=== PATIENT | female | born 1995 | race African-American/Black ===

== ENCOUNTER → 2016-11-10 | Outpatient (CLI) | payer BC ==
[~2016-11-10] MED LIST: PRENTAB26 PO
[2016-11-10 16:08] LABS: HEMATOCRIT 35.2 % (37-47)
[2016-11-10 18:23] LABS: GTGD 50 Grams
== END | disposition home or self-care (01) ==
LOC: C.LAB1850 15:01
PROVIDERS: ATTEND Obstetrics & Gynecology
DX: Z34.03 Encounter for supervision of normal first pregnancy, third trimester (principal)

== ENCOUNTER → 2016-11-10 | Outpatient (CLI) | payer BC ==
[2016-11-10 18:41] LABS: URINE APPEARANCE CLEAR (CLEAR); URINE BILIRUBIN NEG (NEG); URINE COLOR YELLOW; URINE EPITHELIAL CELL AUTO 20-30 /lpf (0-5); URINE NITRITE NEG (NEG); URINE PH 7.5 (4.5-7.5); URINE SPECIFIC GRAVITY 1.011 (1.000-1.030); UROBILINOGEN NEG (NEG)
[2016-11-10 18:44] LABS: MANUAL MICROSCOPIC REQUIRED? NO; REVIEW REQ? NO
== END | disposition home or self-care (01) ==
LOC: C.LABSPEC 18:17
PROVIDERS: ATTEND Obstetrics & Gynecology
DX: Z34.03 Encounter for supervision of normal first pregnancy, third trimester (principal)

== ENCOUNTER → 2016-12-29 | Outpatient (CLI) | payer BC ==
[2016-12-29 17:44] LABS: PATIENT HEIGHT 152.4 cm
[2016-12-29 18:16] LABS: URINE TOTAL PROTEIN 15.9 mg/dl (0-11.9)
[2016-12-29 18:36] LABS: CREATININE 0.46 mg/dl (0.6-1.2)
[2016-12-29 18:53] LABS: URINE TOTAL PROTEIN CALC 238.5 mg/24 hr (0-149.1)
== END | disposition home or self-care (01) ==
LOC: C.LAB 17:29
PROVIDERS: ATTEND Obstetrics & Gynecology
DX: O13.3 Gestational [pregnancy-induced] hypertension without significant proteinuria, third trimester (principal)

== ENCOUNTER → 2016-12-31 | Outpatient (CLI) | payer BC | END | disposition home or self-care (01) | LOC: C.LABSPEC 17:41 | PROVIDERS: ATTEND Obstetrics & Gynecology | DX: Z34.03 Encounter for supervision of normal first pregnancy, third trimester (principal) ==

== ENCOUNTER → 2017-01-04 | Outpatient (CLI) | payer BC ==
[2017-01-04 14:47] LABS: BASO % 0.2 %; BASO ABS # 0.02 K/uL (0-0.2); COMPLETE YES; EOS % 0.7 %; IG% 0.5 %; LYMPH % 19.9 %; LYMPH ABS # 2.13 K/uL (1.2-3.4); MEAN CELL VOLUME 87.2 fL (80-100); MEAN CORPUSCULAR HEMOGLOBIN 29.1 pg (25-34); MEAN CORPUSCULAR HGB CONC 33.3 g/dl (32-36); MEAN PLATELET VOLUME 11.1 fL (7.4-10.4); MONO % 6.3 %; NEUT % 72.4 %; PLATELET COUNT 280 K/uL (130-400); RED BLOOD COUNT 4.13 M/uL (4.2-5.4); WHITE BLOOD COUNT 10.69 K/uL (4.8-10.8)
[2017-01-04 15:36] LABS: ALT/SGPT 17 U/L (12-78); AST/SGOT 14 U/L (15-37); CREATININE 0.48 mg/dl (0.60-1.20)
== END | disposition home or self-care (01) ==
LOC: C.LAB1850 13:40
PROVIDERS: ATTEND Obstetrics & Gynecology
DX: O13.3 Gestational [pregnancy-induced] hypertension without significant proteinuria, third trimester (principal)

== ENCOUNTER 2017-01-05 19:11 | Outpatient (CLI) | payer BC ==
[~2017-01-05] VITALS: Ht 162.6 cm; Wt 96.5 kg
[2017-01-05 20:02] VITALS: Ht 162.6 cm; Wt 96.5 kg
== END 2017-01-05 20:50 | disposition home or self-care (01) ==
LOC: C.OPB 19:11 → C.LD 19:11 → C.OPB 20:50
PROVIDERS: ATTEND Obstetrics & Gynecology
DX: O13.3 Gestational [pregnancy-induced] hypertension without significant proteinuria, third trimester (principal); Z3A.37 37 weeks gestation of pregnancy

== ENCOUNTER 2017-01-06 07:48 | Inpatient (IN) | payer BC ==
[~2017-01-06] VITALS: Ht 167.6 cm; Wt 96.5 kg
[2017-01-06] MEDS ORDERED: LACTATED RINGER'S 1000ML 1,000 ML IV PRN ×2 (08:19→08:57)
[2017-01-06] MEDS ORDERED: LACTATED RINGER'S 1000ML 1,000 ML IV SCH ×2 (08:19→08:57)
[2017-01-06] MEDS ORDERED: LACTATED RINGER'S 1000ML 500 ML IV PRN ×2 (08:59→15:49)
[2017-01-06] MEDS ORDERED: OXYTOCIN 30 UNITS/500ML NSS IV PRN (09:00)
[2017-01-06 09:05] LABS: HEMATOCRIT 36.3 % (37-47); MEAN CELL VOLUME 87.7 fL (80-100); MEAN CORPUSCULAR HEMOGLOBIN 28.5 pg (25-34); MEAN CORPUSCULAR HGB CONC 32.5 g/dl (32-36); PLATELET COUNT 270 K/uL (130-400); RED BLOOD COUNT 4.14 M/uL (4.2-5.4); WHITE BLOOD COUNT 8.05 K/uL (4.8-10.8)
[2017-01-06] MEDS ORDERED: PENICILLIN G POTASSIUM IV 6 MU in DEXTROSE 5% 250ML 250 ML IV ONE (09:15)
[2017-01-06 09:36] LABS: ALB/GLOB RATIO 0.6 (0.9-2); ALKALINE PHOSPHATASE 169 U/L (45-117); ALT/SGPT 19 U/L (12-78); AST/SGOT 16 U/L (15-37); BLOOD UREA NITROGEN 5 mg/dl (7-18); CALCIUM 8.4 mg/dl (8.5-10.1); CARBON DIOXIDE 20 mmol/L (21-32); CHLORIDE 109 mmol/L (98-107); GLUCOSE 85 mg/dl (70-99); POTASSIUM 3.6 mmol/L (3.5-5.1); SODIUM 141 mmol/L (136-145)
[2017-01-06 09:45] LABS: AST/SGOT 15 U/L (15-37); CREATININE 0.51 mg/dl (0.60-1.20)
[2017-01-06 10:31] VITALS: Ht 167.6 cm; Wt 96.5 kg
[2017-01-06] MEDS: PENICILLIN G POTASSIUM IV 3 MU in DEXTROSE 5% 100ML 100 ML IV PRN ×3 (13:35→22:19)
[2017-01-06] MEDS ORDERED: EpHEDrine SULFATE INJ 50 MG/ML AMP ONE (15:02)
[2017-01-06] MEDS ORDERED: BUPIVACAINE 0.25% 30 ML VIAL ONE ×2 (15:02→15:43)
[2017-01-06] MEDS ORDERED: FENTANYL CITRATE INJ 50 MCG/1 ML 2 ML VIAL ONE (15:03)
[2017-01-06] MEDS ORDERED: FENTANYL 2MCG/ML ROPIV 1.25MG/ML 100ML BAG EPI ONE (15:03)
[2017-01-06] MEDS ORDERED: NALOXONE HCL INJ 0.4 MG/1 ML VIAL/CARP IV PRN (16:00)
[2017-01-06] MEDS ORDERED: EpHEDrine SULFATE INJ 50 MG/ML AMP IV PRN (16:00)
[2017-01-06] MEDS ORDERED: FENTANYL 2MCG/ML ROPIV 1.25MG/ML 100ML BAG EPI PRN (16:00)
[2017-01-07] MEDS ORDERED: LANOLIN OINT EXT PRN ×2
[2017-01-07] MEDS ORDERED: SUPERCREAM 0.870 % 15GM JAR EXT PRN
[2017-01-07] MEDS ORDERED: OXYTOCIN 30 UNITS/500ML NSS IV PRN
[2017-01-07] MEDS ORDERED: BENZOCAINE 20% AER SPR 82.5 GM CAN EXT PRN
[2017-01-07] MEDS ORDERED: ACETAMINOPHEN/CODEINE 300/30MG TAB PO PRN ×2
[2017-01-07] MEDS ORDERED: ACETAMINOPHEN 325 MG TAB PO PRN
[2017-01-07 02:35] VITALS: BP 147/94; PULSE 79; TEMP 36.6; O2SAT 99
[2017-01-07 04:20] VITALS: BP 129/77; PULSE 70; TEMP 36.7; O2SAT 99
--- NOTE | 2017-01-07 04:35 | Anesthesia Procedure Note ---
Anesthesia Epidural Removal Nt Date & Time Jan 07, 2017 at 04:35 Vital Signs Pain Intensity: 0.0 Vital Signs Past 12 Hours Date Time Temp Pulse Resp B/P Pulse Ox O2 Delivery O2 Flow Rate FiO2 01/07/17 02:35 99 Room Air 01/07/17 02:35 36.6 79 16 147/94 99 Room Air Notes Mental Status: alert / awake / arousable, participated in evaluation Nausea / Vomiting: adequately controlled Pain: adequately controlled Airway Patency, RR, SpO2: stable & adequate BP & HR: stable & adequate Hydration State: stable & adequate Neuraxial Anesthesia: was administered Anesthetic Complications: no major complications apparent, pt satisfied with anesthetic care Epidural: removed without complications, with tip intact
--- NOTE | 2017-01-07 06:54 | Progress Note ---
Subjective Jan 07, 2017. Subjective conversation w/ patient, physical exam Ambulation: ambulating normally Voiding: no voiding problems Passing Gas: Yes Diet Tolerance: Regular Diet Lochia: Small Feeding Type: Breast Feeding Review of Systems Constitutional: No chills, No fever Respiratory: No cough, No shortness of breath Cardiac: No chest pain, No palpitations Abdomen: No nausea, No pain, No vomiting Objective Vital Signs Date Time Temp Pulse Resp B/P Pulse Ox O2 Delivery O2 Flow Rate FiO2 01/07/17 04:20 36.7 70 16 129/77 99 Room Air 01/07/17 02:35 99 Room Air 01/07/17 02:35 36.6 79 16 147/94 99 Room Air Physical Exam General Appearance: WELL-APPEARING, NO APPARENT DISTRESS Respiratory/Chest: chest non-tender, no respiratory distress Cardiovascular: regular rate, rhythm, no murmur Abdomen: non tender Fundus: Firm, Non-Tender, Relation to Umbilicus (at the umbilicus and to the right) Extremities: non-tender, no calf tenderness Laboratory Results Last 24 Hours Test 01/06/17 08:41 01/07/17 04:44 White Blood Count 8.05 K/uL Red Blood Count 4.14 M/uL Hemoglobin 11.8 g/dL Hematocrit 36.3 % Mean Corpuscular Volume 87.7 fL Mean Corpuscular Hemoglobin 28.5 pg Mean Corpuscular Hemoglobin Concent 32.5 g/dl RDW Standard Deviation 45.7 fL RDW Coefficient of Variation 14.2 % Platelet Count 270 K/uL Mean Platelet Volume 11.0 fL Sodium Level 141 mmol/L Potassium Level 3.6 mmol/L Chloride Level 109 mmol/L Carbon Dioxide Level 20 mmol/L Anion Gap 12.0 mmol/L Blood Urea Nitrogen 5 mg/dl Creatinine 0.51 mg/dl Estimated GFR () > 150.0 Estimated GFR (Non- 135.5 BUN/Creatinine Ratio 10.0 Random Glucose 85 mg/dl Calcium Level 8.4 mg/dl Total Bilirubin 0.2 mg/dl Aspartate Amino Transf (AST/SGOT) 15 U/L Alanine Aminotransferase (ALT/SGPT) 19 U/L Alkaline Phosphatase 169 U/L Total Protein 7.0 gm/dl Albumin 2.6 gm/dl Globulin 4.4 gm/dl Albumin/Globulin Ratio 0.6 Assessment and Plan Problem List Medical Problems: (1) Threatened Status: Acute Post- Day#: 1 Continue Routine Care: Resident Physician Supervision Note: I interviewed and examined the patient. Discussed with Dr. Marks and agree with findings and plan as documented in the note. Any exceptions or clarifications are listed here: [None] Documented By: Eva Johnson s/p Day 1 - vital signs reviewed and wnl - HGB 11.8 yesterday - Blood: O+, GBS+, Rubella immune - Encourage ambulation, encourage breast feeding, and monitor lochia - Patient doing well clinically - CONTINUE ROUTINE POST CARE
--- NOTE | 2017-01-07 07:12 | DELIVERY SUMMARY ---
DATE OF OPERATION: 01/06/2017 The patient is a 21-year-old 3 para 0020 black female, EDC of 01/22/2017 who presented for induction of labor because of gestational mild preeclampsia. She received a cervical balloon on the evening of 01/05/2017. She represented in labor and delivery for continuation of the induction of labor. She was begun on Pitocin augmentation. She received group B strep prophylaxis as well. An IUPC was placed during the course of the labor to better manage Pitocin increases. She progressed to full dilation and +3 station. She pushed for 30 minutes over an intact perineum for delivery of a viable male . Mouth and nasopharynx were suctioned on the perineum. The rest of the was delivered without difficulty and the cord was noted to be somewhat short; this was cut and clamped prior to putting the baby on the mother's abdomen for further stimulation and evaluation. There was spontaneous crying which was vigorous and the infant was moving all four limbs. The placenta was expressed intact with a 3-vessel cord. First degree perineal laceration was repaired with 3-0 chromic in the usual fashion. Bilateral first degree labial lacerations were not bleeding and therefore not repaired. Blood loss was 300 cc. Mother and infant are doing well after delivery. I attest to the content of the Intraoperative Record and any orders documented therein. Any exceptio ns are noted below.
[2017-01-07 07:14] LABS: HEMATOCRIT 33.2 % (37-47)
[2017-01-07 07:38] VITALS: BP 128/81; PULSE 88; TEMP 36.6; O2SAT 99
[2017-01-07] MEDS: PRENATAL VITAMIN TAB PO SCH (08:29)
[2017-01-07] MEDS: DOCUSATE SODIUM 100 MG CAP PO SCH ×2 (08:29→19:41)
[2017-01-07] MEDS: IBUPROFEN 600 MG TAB PO PRN ×3 (08:30→22:18)
[2017-01-07 11:41] VITALS: BP 131/77; PULSE 80; TEMP 36.7; O2SAT 98
[2017-01-07 16:00] VITALS: BP 127/81; PULSE 67; TEMP 36.7
[2017-01-07 19:30] VITALS: BP 134/84; PULSE 76; TEMP 36.6
[2017-01-07] MEDS ORDERED: BISACODYL 5 MG TABEC PO SCH (20:00)
--- NOTE | 2017-01-07 20:25 | Discharge Instructions ---
Discharge Instructions Date of Service Jan 07, 2017. Admission Reason for Admission: Induction Discharge Discharge Diagnosis / Problem: Spontaneous Vaginal Delivery Discharge Goals Goal(s): Routine recovery after delivery Medications Continue Dispensed Medications: supercream, dermaplast, tucks, lansinoh Activity Recommendations Activity Limitations: per Instructions/Follow-up section . Instructions / Follow-Up Instructions / Follow-Up ACTIVITY RECOMMENDATIONS: * Gradual return to full activity over the next 2-3 weeks. * No lifting - nothing heavier than baby over the next 2-3 weeks. * Do not engage in vigorous exercise, sexual activity or sports until cleared by your physician. * Do not drive or operate any motorized equipment until cleared by your physician. * You may shower/bathe daily. MEDICATIONS: For discomfort or pain, you may use Acetaminophen (Tylenol), Ibuprofen (Advil), or Naproxen (Aleve) following the package directions. For constipation you may use Colace following the package directions. BREAST CARE: If you are not breast feeding: * Wear a supportive bra 24 hours a day for one to two weeks. * Avoid stimulating your breasts and nipples as much as possible during the first few weeks after delivery. * When taking a shower, have the warm water hit your back, not breasts. * When your breasts feel full, apply ice packs. Usually three to four times a day helps ease the discomfort. * Take a mild pain medication (Tylenol / Motrin) when you are uncomfortable. If breast feeding: * Use breast milk to lubricate nipples. Lansinoh cream may be used for sore nipples. You do not need to remove cream prior to breast feeding. If using a different brand of cream, check the label for directions regarding removal of cream prior to nursing. * Wear a supportive bra. * If having problems with breasts or breast feeding, call a learning consultant or your health care provider. EPISIOTOMY CARE: After delivery, if you have an episiotomy (stitches), the following steps will ease discomfort and aid healing. * For the first 24 hours after delivery, place ice packs next to your episiotomy to help reduce swelling. * After the first 24 hour-period, sitz baths, either portable or in the tub, are suggested. A shower with a shower arm sprayed over the episiotomy may be comforting. * Raina care should be done after each voiding and bowel movement. Squirt warm water from a plastic bottle over the perineum (region of the body between the anus and urinary opening) and pat dry. * Use Dermoplast to ease discomfort. Shake container. Lawrence directly over the episiotomy. Place a Tucks on a clean sanitary pad next to your episiotomy. SPECIAL CARE INSTRUCTIONS: When you are discharged from the hospital, it is important for you to follow the instructions listed below: * During the first week at home, you should be able to care for yourself and your baby. In addition, the usual light household activities are encouraged. * Limit your activities to the way you feel. Do not try to clean the house or move furniture. Be sensible. * If you actively engage in sports and have done so up until the time of your delivery, you may resume these activities as soon as you feel able. This may take up to one month or even longer. Use good judgment. * Continue to take your vitamins for at least six weeks after the of your baby. * Your diet need not be limited unless you were on a special diet before your delivery. Breast-feeding mothers need around 2500 calories per day and at least 64-80 ounces of fluid per day (8 to 10 glasses). * You should eat foods from the four major food groups. Crash diets or fad diets are to be avoided. Eating lean meats, fresh fruits and vegetables, low-fat dairy products, high fiber foods and a regular exercise program, will help you get back to your pre- weight without putting your health at risk. * Constipation is sometimes a problem after delivery. Take a mild laxative as needed. If breast feeding, Milk of Magnesia is acceptable to use. You may use a suppository or Fleets enema if no episiotomy. * A daily shower or tub bath is suggested. Be sure to thoroughly and gently dry the perineum. * A bloody vaginal discharge will usually continue until around four weeks post . A small amount of bleeding may continue for as long as six weeks. Vaginal discharge changes from the bright red bleeding after delivery to pink then brownish and finally yellowish-pink before becoming white and disappearing. * Bleeding may increase with activity. Your first period may come in 4-8 weeks. If you are breast feeding, your period may be delayed even longer. * Buckeye (sex) can begin whenever both you and your partner feel comfortable and do not have any form of genital infection. It is recommended that you wait at least six weeks for internal and external healing to occur. If you have questions, please talk to your health care practitioner. A condom should be used to prevent infection and . * Foreplay, gentle intercourse and lubrication is very important the first several times to prevent pain. A water-based lubricant such as K-Y jelly or Astroglide may be used. * If you have RH negative blood and your baby is RH positive, you will receive RHOGAM by injection prior to discharge. The nurse will give you a card to keep with you that has the date and place that you received RHOGAM after delivery. * During your care, you had a Rubella screen done to check for the presence of rubella antibodies in your blood. If your test was negative, you will receive a Rubella vaccine prior to discharge. This vaccine may cause a fever, soreness at the injection site and flu-like symptoms. If these symptoms persist, notify your health care practitioner. is not advised for one month after a Rubella vaccine. * Verbalizes understanding of car seat law as reviewed with patient nursing. * Car Seat hand-out given and reviewed with patient by nursing. * Shaken baby information reviewed with patient by nursing. Call you doctor if: * Heavy bleeding (saturating several pads an hour) or passing clots the size of your fist. * A fever >101 degrees F (38.3 degrees C) on two occasions four hours apart and /or chills. * Unusual pain in the pelvic or vaginal areas. * "Baby Blues" lasting longer than two weeks. If you have any questions or concerns, call your health care practitioner at . FOLLOW UP VISIT: * Please call the office at to schedule a 6 week examination. It is important you keep this appointment. It is important for you to make arrangements for either yearly or twice yearly check-ups thereafter. Current Hospital Diet Patient's current hospital diet: Regular OB Diet Discharge Diet Recommended Diet: Regular Diet Pending Studies Studies pending at discharge: no Medical Emergencies . Who to Call and When: Medical Emergencies: If at any time you feel your situation is an emergency, please call 911 immediately. . Non-Emergent Contact Non-Emergency issues call your: Primary Care Provider, [employer] . . "Provider Documentation" section prepared by Enrrique Marks. VTE Core Measure Inpt VTE Proph given/why not?: Treatment not indicated
[2017-01-08 00:25] VITALS: BP 120/70; PULSE 67; TEMP 36.4
--- NOTE | 2017-01-08 07:10 | Progress Note ---
Subjective Jan 08, 2017. Subjective conversation w/ patient, physical exam Ambulation: ambulating normally Voiding: no voiding problems Passing Gas: Yes Diet Tolerance: Regular Diet Lochia: Small Feeding Type: Breast Feeding Review of Systems Constitutional: No chills, No fever Respiratory: No cough, No shortness of breath Cardiac: No chest pain, No edema Objective Vital Signs Date Time Temp Pulse Resp B/P Pulse Ox O2 Delivery O2 Flow Rate FiO2 01/08/17 00:25 Room Air 01/08/17 00:25 36.4 67 16 120/70 Room Air 01/07/17 19:30 36.6 76 20 134/84 Room Air 01/07/17 19:30 Room Air 01/07/17 16:30 Room Air 01/07/17 16:00 36.7 67 20 127/81 Room Air 01/07/17 11:41 36.7 80 16 131/77 98 Room Air 01/07/17 08:30 Room Air 01/07/17 07:38 36.6 88 128/81 99 Room Air Physical Exam General Appearance: WELL-APPEARING, NO APPARENT DISTRESS Respiratory/Chest: lungs clear, no respiratory distress Cardiovascular: regular rate, rhythm, no murmur Abdomen: non tender, soft Fundus: Firm, Non-Tender, Relation to Umbilicus (at the umbilicus) Extremities: non-tender, no calf tenderness Assessment and Plan Problem List Medical Problems: (1) Threatened Status: Acute Post- Day#: 2 Continue Routine Care: s/p Day 2 - vital signs reviewed and wnl - HGB 11.0 yesterday - Blood: O+, GBS+, Rubella immune - Encourage ambulation, encourage breast feeding, and monitor lochia - Patient doing well clinically - CONTINUE ROUTINE POST CARE
[2017-01-08] MEDS: PRENATAL VITAMIN TAB PO SCH (07:50)
[2017-01-08] MEDS: DOCUSATE SODIUM 100 MG CAP PO SCH ×2 (07:50→19:40)
[2017-01-08 07:53] VITALS: BP 127/85; PULSE 72; TEMP 36.7
[2017-01-08 15:30] VITALS: BP 136/81; PULSE 67; TEMP 36.8
[2017-01-08 23:45] VITALS: BP 138/82; PULSE 74; TEMP 36.5
[2017-01-09] MEDS: IBUPROFEN 600 MG TAB PO PRN (03:27)
[2017-01-09] MEDS: DOCUSATE SODIUM 100 MG CAP PO SCH (07:49)
[2017-01-09] MEDS: PRENATAL VITAMIN TAB PO SCH (07:49)
[2017-01-09 07:59] VITALS: BP 131/83; PULSE 83; TEMP 36.6
--- NOTE | 2017-01-09 08:57 | Progress Note ---
Subjective Jan 09, 2017. Subjective conversation w/ patient, physical exam Ambulation: ambulating normally Voiding: no voiding problems Passing Gas: Yes Diet Tolerance: Regular Diet Lochia: Moderate Feeding Type: Breast Feeding Pain: controlled Comment: Doing well, no complaints. Review of Systems Constitutional: No problem reported Respiratory: No problem reported Cardiac: No problem reported Breast: No problem reported Abdomen: No problem reported Female : No problem reported Objective Vital Signs Date Time Temp Pulse Resp B/P Pulse Ox O2 Delivery O2 Flow Rate FiO2 01/09/17 07:59 36.6 83 20 131/83 Room Air 01/09/17 07:45 Room Air 01/08/17 23:45 Room Air 01/08/17 23:45 36.5 74 18 138/82 Room Air 01/08/17 15:30 Room Air 01/08/17 15:30 36.8 67 18 136/81 Room Air Physical Exam General Appearance: WELL-APPEARING, NO APPARENT DISTRESS Respiratory/Chest: no respiratory distress Cardiovascular: regular rate, rhythm Abdomen: non tender, soft Fundus: Firm Extremities: normal inspection Assessment and Plan Problem List Post- Day#: 2 Continue Routine Care: PPD#2 doing well. Ready for discharge to home. Discharge instructions reviewed, questions answered . Followup in office in 6 weeks.
[2017-01-09 16:13] VITALS: BP_DIAS 83; PULSE 83; TEMP 36.6
== END 2017-01-09 16:00 | disposition home or self-care (01) | DRG 775 ==
LOC: C.LD 07:48 → C.OBG 01-07 02:26
PROVIDERS: ADMIT Obstetrics & Gynecology; ATTEND Obstetrics & Gynecology
PROC: 10E0XZZ Delivery of Products of Conception, External Approach (ICD-10-PCS; principal; 2017-01-06)
PROC: 0HQ9XZZ Repair Perineum Skin, External Approach (ICD-10-PCS; principal; 2017-01-06)
DX: O14.04 Mild to moderate pre-eclampsia, complicating childbirth (principal); O69.3XX0 Labor and delivery complicated by short cord, not applicable or unspecified; Z3A.37 37 weeks gestation of pregnancy; Z37.0 Single live birth; O70.0 First degree perineal laceration during delivery

== ENCOUNTER 2024-01-03 06:42 | Inpatient (IN) ==
[2024-01-03] MEDS ORDERED: LIDOCAINE 1% LOCAL 20 ML VIAL INFIL PRN (07:50)
[2024-01-03] MEDS ORDERED: OXYTOCIN 30 UNITS/NSS 30 UNITS/500 ML BAG IV PRN ×2 (07:50→22:13)
[2024-01-03] MEDS: PENICILLIN GK 6 MU in DEXTROSE 5% 250 ML IV STA (08:28)
[2024-01-03] MEDS: LACTATED RINGER'S 1,000 ML IV PRN (08:28)
[2024-01-03 08:35] LABS: Hematocrit (blood only) 33.9 % (37.0-47.0); Hemoglobin 10.4 g/dl (12.0-16.0); Mean Corpuscular Hemoglobin 24.4 pg (25.0-34.0); Mean Corpuscular Hgb Conc 30.7 g/dL (32.0-36.0); Mean Corpuscular Volume 79.4 fL (80.0-100.0); Mean Platelet Volume 11.4 fL (9.4-12.4); Platelet Count 304 K/uL (130-400); RDW Coefficient of Variation 17.1 % (11.5-14.5); RDW Standard Deviation 47.1 fL (36.4-46.3); Red Blood Count 4.27 M/uL (4.20-5.40); White Blood Count 8.71 K/ul (4.8-10.8)
--- NOTE | 2024-01-03 09:07 | History & Physical Report ---
Date of Service January 03, 2024 Assessment & Plan (1) Normal labor and delivery: Plan Patient is stable, without loss of fluid or blood, contractions 7 min apart or further, with continued, observable movement. A CBC, blood bank hold tube, and oxytocin (2 mU/min starting dose, increase 2mU/min every 30 min until contractions every 2-3 min) has been ordered. Admission and Anticipated Discharge Date Admission Date: January 03, 2024 History of Present Illness Chief Complaint: normal labor Primary Care Provider: NO PCP Patient is , with a PMHx of anxiety, two elective abortions, one spontaneous , depression, Hx of mild pre-eclampsia in first /gestational hypertension w/o significant proteinuria in 3rd trimester, who had planned to come in this morning for an induction of labor but had started having contractions earlier this morning at 3 am, 7 minutes apart, without loss of fluid or blood. movement still present. Patient here with Alex, awaiting of son. Patient not experiencing pain outside of discomfort from contractions. Patient had been experiencing some swelling in her feet and hands, with tingling in hands, but less today. , 40 weeks, 1day confirmed via ultrasound. Here for vaginal delivery. Complications with this are none. Has been attending OB appointments regularly. Currently taking aspirin, 81 mg, daily, AM and pre-wilver vitamins. Contractions: yes, 7 min apart Fluid or Blood loss: none Movement: active Labs - Blood type, O+ - Antibody screen, negative - Hgb, 10.4 - Hct, 33.9 - Wbc, 8.71 - Plt, 304 - Rubella, immune - VDRL/RPR, no - Gonorrhea, no - Chlamydia, no - HIV, no - HbSAg, no - GBS+ - Glucose tolerance x 2 Allergies Allergy/AdvReac Type Severity Reaction Status Date / Time shrimp Allergy Severe ANAPHYLAXIS Verified 01/02/24 12:50 No Known Drug Allergies Allergy Unknown Uncoded 01/03/24 07:23 Home Medications Medication Instructions Recorded Confirmed Type prenat.vits,christine,[id number] 1 tab PO DAILY 07/30/19 01/03/24 History aspirin 81 mg chewable tablet 81 mg PO DAILY 11/30/23 01/03/24 History Past Med/Surg History Medical History (Updated 01/03/24 @ 10:04 by Samir Vera MD) Anxiety 1-14 Spontaneous 1-16 depression with last Mild pre-eclampsia Gestational hypertension w/o significant proteinuria in 3rd trimester Surgical History H/O dilation and curettage 1-14 Family History Father Diabetes mellitus, type 2 Dyslipidemia Grandmother (Maternal) Dyslipidemia Hypertrophic cardiomyopathy Aunt Breast cancer Brain cancer Denies family history of Ovarian cancer Colorectal cancer Social History (Updated 05/24/23 @ 10:59 by Lupe Olivares, ALVIN) Smoking Status: Never smoker Second Hand Exposure: No; Do You Dip or Chew Tobacco: No; Hx Alcohol Use: No Hx Substance Use: No Preferred Language: Yi Communication Ability: Effective Rn Corrections Required: No Beliefs That Will Affect Care: None marital status: marital status details: Alex Almanza Jr (30) [phone] Current Living Situation: Family Current Living Situation Comment: lives with and 2 kids current occupational status: employed current occupation: law office Other Information That Helps Us Care for You: No Feels Safe at Home: Yes Safety Concerns: Feels Safe At This Time Assistive Devices: None Review of Systems Constitutional: no fever, no chills, no body aches and no weakness Eyes: no diplopia, not seeing flashes and no worsening vision Ear, Nose, Mouth, Throat: + nasal congestion; no ear pain, no post nasal drip and no sore throat Respiratory: no cough, no chest congestion and no dyspnea Cardiovascular: no chest pain and no palpitations Gastrointestinal: no abdominal pain, no nausea, no vomiting and no diarrhea/loose stools Genitourinary: + urinary frequency; no dysuria Neurologic: + tingling (r. hand tingling); no numbne ss, no dizziness and no headache(s) Physical Exam Constitutional: WD/WN, vitals as above Respiratory: normal respiratory effort, lungs clear to auscultation Cardiovascular: RRR, no murmur, no edema Extremities: no calf tenderness Gastrointestinal (Abdomen): normal bowel sounds, soft, nontender, no hepatosplenomegaly Psychiatric: A+Ox3, euthymic affect Results & Data Results & Data Vital Signs (Past 12 Hours) Vital Signs Temp Pulse Resp BP 01/03/24 06:53 36.7 C 92 H 20 133/78 01/03/24 06:51 36.7 C 20 Supervising Physician Co-Signing Physician Notes Resident Physician Supervision Note: I interviewed and examined the patient. Discussed with Dr. Vera and agree with findings and plan as documented in the note. Any exceptions or clarifications are listed here: 28 yo at 40 1/7 wga presenting with ctx. PNI: GBS+. SVE 3-4/50/-2, post, med. EFW 7-8. Pcn started, augment PRN. Offered arom w/ next check, epidural prn Documented By: Ruby Carrasco MD
[2024-01-03] MEDS: PENICILLIN GK 3 MU in DEXTROSE 5% 100 ML IV PRN (12:18)
[2024-01-03] MEDS ORDERED: ONDANSETRON INJ 2 MG/ML 2 ML VIAL IV PRN (14:09)
[2024-01-03] MEDS ORDERED: NALOXONE HCL 1 MG in SODIUM CHLORIDE 0.9% 1,000 ML IV PRN (14:09)
[2024-01-03] MEDS ORDERED: BUPIVACAINE 0.25% PF 30 ML VIAL EPI PRN (14:09)
[2024-01-03] MEDS ORDERED: fentaNYL citrate PF 100 MCG/2 ML VIAL EPI PRN (14:09)
[2024-01-03] MEDS ORDERED: diphenhydrAMINE 50 MG/ML VIAL IV PRN (14:09)
[2024-01-03] MEDS ORDERED: NALBUPHINE HCL 5 MG in SYRINGE 0 ML IV PRN (14:09)
[2024-01-03] MEDS ORDERED: ROPIVACAINE 0.5% PF 5 MG/ML 20 ML VIAL EPI PRN (14:09)
[2024-01-03] MEDS ORDERED: LIDOCAINE 2% MPF LOCAL 5 ML VIAL EPI PRN (14:09)
[2024-01-03] MEDS ORDERED: ePHEDrine sulfate 50 MG/ML AMP IV PRN (14:09)
[2024-01-03] MEDS ORDERED: fentANYL 2 MCG/ML BUPIVacaine 0.125%-NSS 100ML BAG EPI PRN (14:09)
[2024-01-03] MEDS ORDERED: SODIUM CHLORIDE 0.9% PF INJ 10 ML VIAL EPI PRN (14:09)
[2024-01-03] MEDS ORDERED: NALOXONE HCL 0.4 MG/1 ML VIAL/CARP IV PRN (14:09)
--- NOTE | 2024-01-03 14:09 | Anesthesiology Consultation ---
Date of Service January 03, 2024 Assessment & Plan ASA ASA2 Proposed Anesthesia Anesthesia Type: Labor Epidural Risk / Benefits Reviewed With: PT / POA / Parent / Guardian, Accepts Plan and Informed Consent Obtained History Height/Weight Height: 5 ft 4 in Weight: 96.162 kg Allergies Allergy/AdvReac Type Severity Reaction Status Date / Time shrimp Allergy Severe ANAPHYLAXIS Verified 01/02/24 12:50 No Known Drug Allergies Allergy Unknown Uncoded 01/03/24 07:23 Medications Home Medications Medication Instructions Recorded Confirmed Last Taken prenat.vits,christine,[id number] 1 tab PO DAILY 07/30/19 01/03/24 Unknown aspirin 81 mg chewable tablet 81 mg PO DAILY 11/30/23 01/03/24 Unknown Active Medications Generic Name Dose Route Start Last Admin Trade Name Freq PRN Reason Stop Dose Admin Lactated Ringer's 1,000 mls @ 125 mls/hr 01/03/24 07:50 01/03/24 13:50 Lr IV 01/05/24 07:49 999 mls/hr .Q8H PRN Infusion L&D Protocol Protocol Penicillin G Potassium 3 mu/ 106 mls @ 100 mls/hr 01/03/24 10:50 01/03/24 13:30 Dextrose IV 01/13/24 10:49 0 mls/hr Q4H PRN Titration GBS(+) Until Delivery Past Medical History Medical History Anxiety 1-14 Spontaneous 1-16 depression with last Mild pre-eclampsia Gestational hypertension w/o significant proteinuria in 3rd trimester Exercise / Class Metabolic Activity II 4-5 Yardwork/Stairs/Walk up hill Past Family History Family History Father Diabetes mellitus, type 2 Dyslipidemia Grandmother (Maternal) Dyslipidemia Hypertrophic cardiomyopathy Aunt Breast cancer Brain cancer Denies family history of Ovarian cancer Colorectal cancer Past Surgical History Surgical History H/O dilation and curettage 1-14 Past Anesthesia History No Hx of Anesthesia Complications and No Family Hx of Anesthesia Complications History of PONV No Hx of PONV and No Hx of Motion Sickness Social History Smoking Status: Never smoker tobacco type: cigarettes Do You Dip or Chew Tobacco: No Hx Alcohol Use: No Hx Substance Use: No substance use type: does not use Review of Systems denies fever/cough/ colds/ chest pain/ SOB/ EVAN denies EVAN Physical Exam Vital Signs Last Vital Signs Temp 36.7 C 01/03/24 12:17 Pulse 96 H 01/03/24 15:11 Resp 18 01/03/24 15:00 BP 121/62 01/03/24 15:11 Pulse Ox 100 01/03/24 15:10 ENMT Mouth: no TMJ abnormality and no dentition abnormality Thyromental Distance: > or= 3.5 Finger Breadths Mallampati Class: II Neck neck extension not limited Respiratory normal respiratory effort; no respiratory distress Auscultation: lungs clear to auscultation bilaterally Cardiovascular Rate/Rhythm: regular rate and regular rhythm Neurologic moves all extremities Psychiatric Orientation: alert and oriented x 3 Testing Laboratory Results 01/03/24 08:11 Blood Type O Positive 01/03/24 08:11 Antibody Screen NEGATIVE 01/03/24 08:11
[2024-01-03] MEDS: fentANYL 2 MCG/ML BUPIVacaine 0.125%-NSS 100ML BAG ONE (14:40)
[2024-01-03] MEDS: fentaNYL citrate PF 100 MCG/2 ML VIAL ONE (14:41)
[2024-01-03] MEDS: LIDOCAINE 2%/EPINEPHRINE 1:200,000 20 ML PF ONE (14:42)
[2024-01-03] MEDS: BUPIVACAINE 0.25% PF 30 ML VIAL ONE (14:42)
[2024-01-03] MEDS: BUPIVACAINE 0.25% PF 30 ML VIAL EPI STA (15:21)
[2024-01-03] MEDS: fentaNYL citrate PF 100 MCG/2 ML VIAL EPI STA (15:22)
[2024-01-03] MEDS: LIDOCAINE 2%/EPINEPHRINE 1:200,000 20 ML PF EPI STA (15:22)
[2024-01-03] MEDS: SODIUM CHLORIDE 0.9% PF INJ 10 ML VIAL EPI STA (15:22)
--- NOTE | 2024-01-03 15:23 | Labor Progress Brief Note ---
Date of Service January 03, 2024 Subjective comfortable w/ epidural Assessment & Plan (1) Group B streptococcal infection during : Plan: 28 yo at 40 1/7 wga admitted for labor/IOL VSS Fetus cat Labor - now s/p arom for large amount of fluid, will start pit if ctx not increasing shortly GBS+, pcn ordered epidural in place Admission and Anticipated Discharge Date Admission Date: January 03, 2024 Physical Exam Genitourinary: Manual OB Exam: + cervical dilation (4-5), + cervical effacement 50%, + station -2 and + amniotic fluid (arom clear) OB Exam Monitor Tracing: + external FHT monitor used, + external uterine monitor used (q5-8) and + category I (135-140/mod/+accel/-decel) Results & Data Vital Signs (Past 12 Hours) Vital Signs Temp Pulse Resp BP Pulse Ox 01/03/24 15:15 98 H 100 01/03/24 15:11 96 H 121/62 01/03/24 15:10 96 H 100 01/03/24 15:05 83 99 01/03/24 15:04 76 96/54 L 01/03/24 15:00 18 01/03/24 15:00 18 01/03/24 15:00 100 01/03/24 15:00 100 H 01/03/24 15:00 97 H 117/59 L 01/03/24 14:55 95 H 100 01/03/24 14:54 90 103/50 L 01/03/24 14:50 98 H 134/71 100 01/03/24 14:45 102 H 100 01/03/24 14:42 101 H 134/71 01/03/24 14:40 99 H 130/61 100 01/03/24 14:39 110 H 141/70 H 01/03/24 14:37 96 H 140/80 01/03/24 14:35 96 H 100 01/03/24 14:33 101 H 136/85 01/03/24 14:30 100 01/03/24 14:30 96 H 01/03/24 14:30 94 H 137/90 01/03/24 14:25 98 H 100 01/03/24 14:20 105 H 100 01/03/24 12:17 98.1 F 88 18 130/75 01/03/24 06:53 98.1 F 92 H 20 133/78 01/03/24 06:51 98.1 F 20 Coding Level of Care Code None Diagnoses Group B streptococcal infection during O98.819; B95.1
[2024-01-03] MEDS: OXYTOCIN 30 UNITS/NSS 30 UNITS/500 ML BAG IV PRN (16:29)
[2024-01-03] MEDS: SODIUM CHLORIDE 0.9% PF INJ 10 ML VIAL ONE (19:04)
[2024-01-03] MEDS: ePHEDrine sulfate 50 MG/ML AMP ONE (19:04)
--- NOTE | 2024-01-03 20:25 | Labor Progress Brief Note ---
Date of Service January 03, 2024 Subjective comfortable w/ epidural Assessment & Plan (1) Group B streptococcal infection during : Plan: 28 yo at 40 1/7 wga admitted for labor/IOL VSS Fetus cat Labor - pit at 6, progress noted. Continue induction GBS+, pcn ordered epidural in place Admission and Anticipated Discharge Date Admission Date: January 03, 2024 Physical Exam Genitourinary: Manual OB Exam: + cervical dilation (7-8), + cervical effacement 70% and + station -1 and 0 OB Exam Monitor Tracing: + external FHT monitor used, + external uterine monitor used (q5-8) and + category II (130/mod/+accel/intermit early and variables) Results & Data Vital Signs (Past 12 Hours) Vital Signs Temp Pulse Resp BP Pulse Ox 01/03/24 20:20 78 100 01/03/24 20:16 91 H 88 L 01/03/24 20:15 88 96 01/03/24 20:11 82 133/73 01/03/24 20:10 81 100 01/03/24 20:05 86 100 01/03/24 20:00 86 100 01/03/24 19:57 81 128/74 01/03/24 19:55 85 100 01/03/24 19:50 84 100 01/03/24 19:45 81 100 01/03/24 19:41 90 134/75 01/03/24 19:40 85 100 01/03/24 19:35 81 100 01/03/24 19:30 83 100 01/03/24 19:28 84 92 01/03/24 19:26 84 144/77 H 01/03/24 19:25 98 H 98 01/03/24 19:20 74 100 01/03/24 19:15 83 100 01/03/24 19:12 86 131/67 01/03/24 19:10 87 99 01/03/24 19:05 72 100 01/03/24 19:00 98.1 F 85 18 100 01/03/24 18:58 81 135/77 01/03/24 18:55 80 100 01/03/24 18:51 80 91 01/03/24 18:50 85 100 01/03/24 18:45 82 100 01/03/24 18:42 82 136/84 03/05/24 18:40 77 100 03/05/24 18:35 85 100 03/05/24 18:30 86 100 03/05/24 18:27 82 133/75 03/05/24 18:25 81 100 03/05/24 18:20 89 100 03/05/24 18:15 80 100 /05/24 18:13 87 93 03/05/24 18:12 77 133/79 03/05/24 18:10 78 100 03/05/24 18:05 87 100 /0524 18:02 81 93 03/05/24 18:00 84 100 /05/24 17:58 83 18 155/87 H 0524 17:55 92 H 100 /0524 17:50 76 100 /0524 17:45 87 100 /05/24 17:41 85 135/76 /05/24 17:40 87 100 /05/24 17:35 100 /0524 17:35 85 03/05/24 17:35 91 H 92 /0524 17:30 81 100 03/05/24 17:27 90 150/72 H /05/24 17:25 86 100 03/05/24 17:20 81 100 /05/24 17:15 79 100 03/05/24 17:13 80 134/75 03/05/24 17:10 80 100 /0524 17:05 80 100 /05/24 17:00 98.1 F 78 16 100 03/05/24 16:57 92 H 151/71 H /05/24 16:55 77 100 /05/24 16:50 87 100 03/05/24 16:45 83 100 03/05/24 16:43 83 120/66 03/05/24 16:40 86 100 03/05/24 16:38 95 H 84 L 03/05/24 16:35 95 H 100 03/05/24 16:30 81 100 03/05/24 16:26 85 127/80 03/05/24 16:25 100 H 100 /05/24 16:20 90 100 03/05/24 16:15 98 H 100 03/05/24 16:12 88 121/78 03/05/24 16:10 95 H 99 03/05/24 16:05 98 H 100 03/05/24 16:00 85 18 100 01/03/24 15:56 93 H 130/68 01/03/24 15:55 90 100 01/03/24 15:50 87 100 01/03/24 15:45 91 H 100 01/03/24 15:41 89 127/72 01/03/24 15:40 88 100 01/03/24 15:35 86 100 01/03/24 15:30 92 H 100 01/03/24 15:27 93 H 125/73 01/03/24 15:25 85 123/65 100 01/03/24 15:20 101 H 100 01/03/24 15:15 98 H 100 01/03/24 15:12 18 01/03/24 15:12 98.1 F 18 01/03/24 15:11 96 H 121/62 01/03/24 15:10 96 H 100 01/03/24 15:05 83 99 01/03/24 15:04 76 96/54 L 01/03/24 15:00 18 01/03/24 15:00 18 01/03/24 15:00 100 01/03/24 15:00 100 H 01/03/24 15:00 97 H 117/59 L 01/03/24 14:55 95 H 100 01/03/24 14:54 90 103/50 L 01/03/24 14:50 98 H 134/71 100 01/03/24 14:45 102 H 100 01/03/24 14:42 101 H 134/71 01/03/24 14:40 99 H 130/61 100 01/03/24 14:39 110 H 141/70 H 01/03/24 14:37 96 H 140/80 01/03/24 14:35 96 H 100 01/03/24 14:33 101 H 136/85 01/03/24 14:30 100 01/03/24 14:30 96 H 01/03/24 14:30 94 H 137/90 01/03/24 14:25 98 H 100 01/03/24 14:20 105 H 100 01/03/24 12:17 98.1 F 88 18 130/75 Coding Level of Care Code None Diagnoses Group B streptococcal infection during O98.819; B95.1
--- NOTE | 2024-01-03 22:08 | Delivery Summary ---
Vaginal Delivery Summary Date of Service January 03, 2024 Vaginal Delivery Summary [facility] PREOPERATIVE DIAGNOSIS: 1. Single intrauterine at 40 1/7 wga 2. Late term IOL 3. GBS+ POSTOPERATIVE DIAGNOSIS: 1. Single intrauterine at 40 1/7 wga 2. Late term IOL 3. GBS+ 4. Delivered PROCEDURE: 1. Normal spontaneous vaginal delivery. SURGEON: Ruby Carrasco MD ANESTHESIA: Epidural. ESTIMATED BLOOD LOSS: 300 mL FLUIDS: Continuous LR. URINE OUTPUT: None. COMPLICATIONS: None. CONDITION: Stable. INDICATIONS: 28 yo at 40 1/7 wga presented early this morning in early labor before planned induction. She was admitted and penicillin started. She progressed to 4cm and received an epidural for pain control. She minimally progressed after and pitocin was started. She then continued to progress to complete and desires to push. FINDINGS: A viable male infant, weight pending with Apgars of 8 and 9 at 1 and 5 minutes respectively. SPECIMEN: Cord blood OPERATIVE REPORT: The patient progressed to 10 cm, 100% effaced and +2 station, pushed over intact perineum with anesthesia to deliver a viable male infant, weight and Apgars as above. Head of delivered in FLOYD position. Loose nuchal cord was present but delivered through as body and shoulders were delivered without difficulty. was delivered to maternal abdomen and nursing staff. Delayed cord clamping was performed for 60 seconds. Cord was clamped and cut. Cord blood was obtained. Placenta delivered spontaneously intact with 3-vessel cord. IV oxytocin and fundal massage were given for excellent hemostasis. Vagina, cervix, perineum, and placenta were inspected. No lacerations were noted. Sponge and needle counts correct x2. No sponges were left behind. Mother and stable in immediate period. [facility] [place] Vaginal Delivery Codes: 43818 global code for the antepartum, delivery, and post- Delivery Type Details: [facility]
[2024-01-03] MEDS ORDERED: bisacodyL 10 MG SUPP PR PRN (22:13)
[2024-01-03] MEDS ORDERED: HYDROCORTISONE ACETATE 25 MG SUPP PR PRN (22:13)
[2024-01-03] MEDS: DIPHTHER/TETAN/PERTUS Vaccine (Tdap, Adol/Adult) 0.5mL IM ONE (22:30)
[2024-01-03] MEDS: IBUPROFEN 600 MG TAB PO PRN (23:06)
[2024-01-03] MEDS: BENZOCAINE 20% SPRY 85 APPLN/85 GM CAN EXT PRN (23:07)
--- NOTE | 2024-01-04 05:44 | Obstetrical Progress Note ---
Date of Service <Samir Vera MD - Last Filed: 01/04/24 07:50> January 04, 2024 Assessment & Plan <Samir Vera MD - Last Filed: 01/04/24 07:50> (1) Normal labor and delivery: Plan 28 yo , status post , day 1 from 01/03/24 - Pt doing well clinically. Feels well today. Eating well, voiding well, ambulating well. Pain well controlled with PRN pain meds. - Routine care -- OOB, ambulation, diet progression as tolerated Vital Signs reviewed and WNL. (Tmax at 36.9) Hemoglobin Reviewed. 10.4 (01/03/24). No Sx concerning for anemia. Blood Type: O+, GBS+, Rubella Immune. Encourage ambulation, monitor and control pain with Motrin PRN, resume regular diet, monitor lochia. Breast feeding encouraged. After discharge will have 6 week follow-up with Dr. Carrasco. <Ruby Carrasco MD - Last Filed: 01/04/24 08:14> (1) Normal labor and delivery: Subjective <Samir Vera MD - Last Filed: 01/04/24 07:50> Ambulation: ambulating normally Voiding: no voiding problems Passing Gas:: Yes Diet Tolerance:: regular diet Lochia:: Moderate Feeding Type:: bottle feeding (and pump breast milk) Current Pain Level(1-10): 6 (in pelvic area) Constitutional: no fever, no chills, no body aches or no weakness Eyes: no diplopia, no seeing flashes or no worsening vision Ear, Nose, Mouth, Throat: + nasal congestion; no ear pain, no post nasal drip or no sore throat Respiratory: no cough, no chest congestion or no dyspnea Cardiovascular: no chest pain or no palpitations Gastrointestinal: no abdominal pain, no nausea, no vomiting or no diarrhea/loose stools Genitourinary (female): + urinary frequency; no dysuria Neurologic: + tingling (r. hand tingling); no numbness, no dizziness or no headache(s) Physical Exam <Samir Vera MD - Last Filed: 01/04/24 07:50> Constitutional WD/WN, vitals as above Respiratory normal respiratory effort, lungs clear to auscultation Cardiovascular RRR, no murmur, no edema Extremities: no calf tenderness Gastrointestinal (Abdomen) normal bowel sounds, soft, nontender, no hepatosplenomegaly Psychiatric A+Ox3, euthymic affect Results & Data <Samir Vera MD - Last Filed: 01/04/24 07:50> Vital Signs (Past 12 Hours) Vital Signs Temp Pulse Pulse Resp BP BP Pulse Ox 01/04/24 01:00 36.7 C 87 16 126/80 98 01/04/24 00:11 87 135/64 01/03/24 23:56 96 H 130/61 01/03/24 23:41 99 H 146/73 H 01/03/24 23:27 104 H 147/65 H 01/03/24 23:11 93 H 139/64 01/03/24 22:56 114 H 149/83 H 01/03/24 22:42 105 H 152/72 H 01/03/24 22:27 104 H 152/79 H 01/03/24 22:24 105 H 139/94 01/03/24 21:57 107 H 98 01/03/24 21:56 107 H 139/79 01/03/24 21:52 160 H 96 01/03/24 21:47 137 H 98 01/03/24 21:40 102 H 84 L 01/03/24 21:36 110 H 91 01/03/24 21:35 108 H 98 01/03/24 21:30 99 H 100 01/03/24 21:26 96 H 146/82 H 01/03/24 21:25 96 H 99 01/03/24 21:20 36.9 C 94 H 18 100 01/03/24 21:15 96 H 100 01/03/24 21:13 90 139/83 01/03/24 21:10 92 H 100 01/03/24 21:05 94 H 100 01/03/24 21:00 87 100 01/03/24 20:59 105 H 91 01/03/24 20:58 90 138/87 01/03/24 20:55 88 100 01/03/24 20:50 98 H 100 01/03/24 20:45 85 100 01/03/24 20:43 86 134/80 03/05/24 20:40 84 100 03/05/24 20:35 78 100 03/05/24 20:30 89 100 03/0524 20:26 80 139/85 03/0524 20:25 82 100 03/05/24 20:20 78 100 0524 20:16 91 H 88 L 01/03/24 20:15 88 96 24 20:11 82 133/73 03/0524 20:10 81 100 05 20:05 86 100 0305 20:00 86 100 05 19:57 81 128/74 03/0524 19:55 85 100 05 19:50 84 100 /05 19:45 81 100 05 19:41 90 134/75 0524 19:40 85 100 01/03/24 19:35 81 100 03/0524 19:30 83 100 05 19:28 84 92 01/03/24 19:26 84 144/77 H 01/03/24 19:25 98 H 98 01/03/24 19:20 74 100 03/05 19:15 83 100 03/0524 19:12 86 131/67 0305 19:10 87 99 05 19:05 72 100 01/03/24 19:00 36.7 C 85 18 100 01/03/24 18:58 81 135/77 03/05/24 18:55 80 100 0524 18:51 80 91 03/0524 18:50 85 100 030524 18:45 82 100 03/0524 18:42 82 136/84 0524 18:40 77 100 03/0524 18:35 85 100 03/05/24 18:30 86 100 03/0524 18:27 82 133/75 03/05/24 18:25 81 100 03/0524 18:20 89 100 030524 18:15 80 100 03/0524 18:13 87 93 03/0524 18:12 77 133/79 03/0524 18:10 78 100 03/0524 18:05 87 100 030524 18:02 81 93 03/0524 18:00 84 100 01/03/24 17:58 83 18 155/87 H 01/03/24 17:55 92 H 100 01/03/24 17:50 76 100 01/03/24 17:45 87 100 O2 Del Method 01/04/24 01:00 Room Air 01/04/24 00:11 01/03/24 23:56 01/03/24 23:41 01/03/24 23:27 01/03/24 23:11 01/03/24 22:56 01/03/24 22:42 01/03/24 22:27 01/03/24 22:24 01/03/24 21:57 01/03/24 21:56 01/03/24 21:52 01/03/24 21:47 01/03/24 21:40 01/03/24 21:36 01/03/24 21:35 01/03/24 21:30 01/03/24 21:26 01/03/24 21:25 01/03/24 21:20 01/03/24 21:15 01/03/24 21:13 01/03/24 21:10 01/03/24 21:05 01/03/24 21:00 01/03/24 20:59 01/03/24 20:58 01/03/24 20:55 01/03/24 20:50 01/03/24 20:45 01/03/24 20:43 01/03/24 20:40 01/03/24 20:35 01/03/24 20:30 01/03/24 20:26 01/03/24 20:25 01/03/24 20:20 01/03/24 20:16 01/03/24 20:15 01/03/24 20:11 01/03/24 20:10 01/03/24 20:05 01/03/24 20:00 01/03/24 19:57 01/03/24 19:55 01/03/24 19:50 01/03/24 19:45 01/03/24 19:41 01/03/24 19:40 01/03/24 19:35 01/03/24 19:30 01/03/24 19:28 01/03/24 19:26 01/03/24 19:25 01/03/24 19:20 01/03/24 19:15 01/03/24 19:12 01/03/24 19:10 01/03/24 19:05 01/03/24 19:00 01/03/24 18:58 01/03/24 18:55 01/03/24 18:51 01/03/24 18:50 01/03/24 18:45 01/03/24 18:42 01/03/24 18:40 01/03/24 18:35 01/03/24 18:30 01/03/24 18:27 01/03/24 18:25 01/03/24 18:20 01/03/24 18:15 01/03/24 18:13 01/03/24 18:12 01/03/24 18:10 01/03/24 18:05 01/03/24 18:02 01/03/24 18:00 01/03/24 17:58 01/03/24 17:55 01/03/24 17:50 01/03/24 17:45 Supervising Physician <Ruby Carrasco MD - Last Filed: 01/04/24 08:14> Co-Signing Physician Notes Resident Physician Supervision Note: I interviewed and examined the patient. Discussed with Dr. Vera and agree with findings and plan as documented in the note. Any exceptions or clarifications are listed here: PP1 s/p , doing well. VSS, exam benign and wnl. Continue routine care, plan dc tomorrow as delivered late last night Documented By: Ruby Carrasco MD
--- NOTE | 2024-01-04 08:08 | Anesthesia Procedure Note ---
Date of Service January 04, 2024 Anesthesia Post Epidural Note Vital Signs Vital Signs: Temp Pulse Resp BP Pulse Ox O2 Del Method 36.6 C 74 17 130/85 98 Room Air 01/04/24 04:45 01/04/24 04:45 01/04/24 04:45 01/04/24 04:45 01/04/24 04:45 01/04/24 04:45 Pain Intensity Episiotomy/Laceration: Pain Intensity: 7 Notes Mental Status: alert / awake / arousable and participated in evaluation Nausea / Vomiting: adequately controlled Pain: adequately controlled Airway Patency, RR, SpO2: stable & adequate BP & HR: stable & adequate Hydration State: stable & adequate Neuraxial Anesthesia: was administered and sensory block is resolving Anesthetic Complications: no major complications apparent Epidural: Removed without complications and With tip intact
[2024-01-04] MEDS: DOCUSATE SODIUM 100 MG CAP PO SCH (08:30)
[2024-01-04] MEDS: PRENATAL VITAMIN 1 TAB PO SCH (08:30)
[2024-01-04] MEDS: FERROUS SULFATE 325 MG TAB PO SCH (08:34)
[2024-01-04] MEDS: ACETAMINOPHEN 325 MG TAB PO PRN (11:44)
[2024-01-04] MEDS: bisacodyL 5 MG TABEC PO SCH (19:46)
--- NOTE | 2024-01-05 06:31 | Obstetrical Progress Note ---
Date of Service <Samir Vera MD - Last Filed: 01/05/24 08:18> January 05, 2024 Assessment & Plan <Samir Vera MD - Last Filed: 01/05/24 08:18> (1) Normal labor and delivery: Plan 28 yo , status post , day 2 from 01/03/24 - Pt doing well clinically. Feels well today. Eating well, voiding well, ambulating well. Pain well controlled with PRN pain meds. - Routine care -- OOB, ambulation, diet progression as tolerated Vital Signs reviewed and WNL. (Tmax at 36.9) Hemoglobin Reviewed. 10.4 (01/03/24). No Sx concerning for anemia. Blood Type: O+, GBS+, Rubella Immune. Encourage ambulation, monitor and control pain with Motrin PRN, resume regular diet, monitor lochia. Breast feeding encouraged. After discharge will have 6 week follow-up with Dr. Carrasco. Patient counselled on discharge instructions, as she'll be discharged today. <Eva Ramos MD, FACOG - Last Filed: 01/05/24 08:42> (1) Normal labor and delivery: Subjective <Samir Vera MD - Last Filed: 01/05/24 08:18> Ambulation: ambulating normally Voiding: no voiding problems Passing Gas:: Yes Diet Tolerance:: regular diet Lochia:: Small Feeding Type:: bottle feeding (supplemented w/ breast pumping) Current Pain Level(1-10): 3 (in pelvic area) Constitutional: no fever, no chills, no body aches or no weakness Eyes: no diplopia, no seeing flashes or no worsening vision Ear, Nose, Mouth, Throat: + nasal congestion; no ear pain, no post nasal drip or no sore throat Respiratory: no cough, no chest congestion or no dyspnea Cardiovascular: no chest pain or no palpitations Gastrointestinal: no abdominal pain, no nausea, no vomiting or no diarrhea/loose stools Genitourinary (female): + urinary frequency; no dysuria Neurologic: + tingling (r. hand tingling); no numbness, no dizziness or no headache(s) Physical Exam <Samir Vera MD - Last Filed: 01/05/24 08:18> Constitutional WD/WN, vitals as above Respiratory normal respiratory effort, lungs clear to auscultation Cardiovascular RRR, no murmur, no edema Extremities: no calf tenderness Gastrointestinal (Abdomen) normal bowel sounds, soft, nontender, no hepatosplenomegaly Psychiatric A+Ox3, euthymic affect Results & Data <Samir Vera MD - Last Filed: 01/05/24 08:18> Vital Signs (Past 12 Hours) Vital Signs Temp Pulse Resp BP Pulse Ox O2 Del Method 01/05/24 00:15 36.5 C 80 16 130/77 98 Room Air 01/04/24 20:00 36.5 C 98 H 16 130/82 100 Room Air Supervising Physician <Eva Ramos MD, FACOG - Last Filed: 01/05/24 08:42> Co-Signing Physician Notes Resident Physician Supervision Note: I interviewed and examined the patient. Discussed with Dr. Vera and agree with findings and plan as documented in the note. Any exceptions or clarifications are listed here: [None] Documented By: Eva Ramos MD, FACOG
== END 2024-01-05 12:40 | disposition home or self-care (01) | DRG 807 ==
LOC: 4S1 06:42 → 4E2 01-04 01:12